=== PATIENT | female | born 1955 | race Caucasian/White ===

== ENCOUNTER 2021-08-15 14:39 | Emergency (ER) | payer OTHER ==
[~2021-08-15] VITALS: Ht 172.7 cm; Wt 181.4 kg
[2021-08-15 15:17] LABS: Basophils # (auto) 0 10 ^3/uL (0-0.2); Eosinophils # (auto) 0.3 10 ^3/uL (0-0.8); Monocytes # (auto) 0.5 10 ^3/uL (0-1.3)
[2021-08-15 15:18] LABS: Basophils % (auto) 0.4 % (0.0-2.0); Eosinophils % (auto) 3.8 % (0.0-7.0); Hematocrit 26.9 % (36.0-46.0); Lymphocytes # (auto) 0.8 10 ^3/uL (0.4-5.4); Lymphocytes % (auto) 9.6 % (10.0-50.0); Mean Corpuscular Hemoglobin 33.9 pg (28.0-32.0); Mean Corpuscular Hgb Conc. 33.5 g/dL (32.0-36.0); Mean Corpuscular Volume 101.3 fL (80.0-100.0); Monocytes % (auto) 6.7 % (0.0-12.0); Neutrophils # (auto) 6.3 10 ^3/uL (1.6-8.6); Neutrophils % (auto) 79.5 % (37.0-80.0); Red Blood Cells 2.66 10^6/uL (4.0-5.20); Red Cell Distribution Width 15.9 % (11.8-14.3); White Blood Cell 7.9 10^3/uL (4.4-10.8)
[2021-08-15] MEDS ORDERED: FUROSEMIDE 40 MG/4 ML VIAL IV ONE (15:30)
[2021-08-15 15:35] LABS: Albumin 3.4 g/dL (3.4-5.0); Calcium 8.8 mg/dL (8.5-10.1); Potassium 3.8 mmol/L (3.5-5.1)
[2021-08-15 15:38] LABS: Bilirubin, Total 0.4 mg/dL (0.2-1.0); Total Protein 6.1 g/dL (6.4-8.2)
[2021-08-15] MEDS ORDERED: FUROSEMIDE 20 MG TAB PO ONE (15:45)
[2021-08-15 15:53] LABS: Urine Bacteria MANY /hpf (None Seen); Urine Blood 2+ /uL (Negative); Urine Mucus FEW (None Seen); Urine Specific Gravity 1.013 (1.001-1.035); Urine WBC 299 /hpf (0 - 5); Urine WBC Clumps PRESENT /hpf (None Seen)
[2021-08-15] MEDS ORDERED: NITROFURANTOIN 100 mg CAP PO ONE (17:15)
[2021-08-15] MEDS ORDERED: NITR-87 PO (17:16)
[2021-08-15 17:28] VITALS: BP 121/70
== END 2021-08-15 17:37 | disposition home or self-care (01) ==
LOC: ER 14:39
DX: N39.0 Urinary tract infection, site not specified (principal); J81.1 Chronic pulmonary edema
CPT/HCPCS: 36415; 71045; 80053; 81001; 83735; 83880; 84484; 85025; 93005

== ENCOUNTER 2021-12-14 16:46 | Inpatient (IN) | payer OTHER ==
[~2021-12-14] VITALS: Ht 172.7 cm; Wt 180.2 kg
[~2021-12-14 16:46] MED LIST: NITR-87 PO
[2021-12-14 20:06] LABS: Urine Bacteria MANY /hpf (None Seen); Urine Blood 1+ /uL (Negative); Urine WBC 241 /hpf (0 - 5); Urine WBC Clumps PRESENT /hpf (None Seen)
[2021-12-14 20:44] LABS: Lymphocytes # (auto) 0.5 10 ^3/uL (0.4-5.4)
[2021-12-14 20:47] LABS: Basophils # (auto) 0 10 ^3/uL (0-0.2); Basophils % (auto) 0.7 % (0.0-2.0); Eosinophils # (auto) 0.2 10 ^3/uL (0-0.8); Eosinophils % (auto) 3.1 % (0.0-7.0); Hematocrit 30.6 % (36.0-46.0); Hemoglobin 9.3 g/dL (12.2-16.2); Lymphocytes % (auto) 10.3 % (10.0-50.0); Mean Corpuscular Hemoglobin 31.4 pg (28.0-32.0); Mean Corpuscular Hgb Conc. 30.4 g/dL (32.0-36.0); Mean Corpuscular Volume 103.4 fL (80.0-100.0); Monocytes # (auto) 0.4 10 ^3/uL (0-1.3); Monocytes % (auto) 8.6 % (0.0-12.0); Neutrophils % (auto) 77.3 % (37.0-80.0); Nucleated Red Blood Cells % 0.1 %; Red Blood Cells 2.96 10^6/uL (4.0-5.20); White Blood Cell 5.2 10^3/uL (4.4-10.8)
[2021-12-14 20:52] LABS: Red Cell Distribution Width 20.5 % (11.8-14.3)
[2021-12-14 21:07] LABS: Albumin 3.4 g/dL (3.4-5.0); Calcium 8.5 mg/dL (8.5-10.1); Potassium 3.3 mmol/L (3.5-5.1)
[2021-12-14 21:09] LABS: BUN/Creatinine Ratio 5.7
[2021-12-14 21:11] LABS: Bilirubin, Total 0.8 mg/dL (0.2-1.0); Total Protein 6.5 g/dL (6.4-8.2)
[2021-12-15] MEDS ORDERED: DOCUSATE SOD 100 MG CAP PO PRN (10:00)
[2021-12-15] MEDS ORDERED: ONDANSETRON HCL 4 MG/2 ML VIAL IV PRN (10:00)
[2021-12-15] MEDS ORDERED: HYDROcodone-ACET 5/325MG TAB PO PRN ×2 (10:00→11:00)
[2021-12-15] MEDS: ENOXAPARIN SOD 30 MG/0.3 ML SYRINGE SC SCH (10:00)
[2021-12-15] MEDS ORDERED: MEROPENEM 1GM IVPB 100 ML IV SCH (11:00)
[2021-12-15 11:01] LABS: INR 1.16 (0.9-1.15); Partial Thromboplastin Time 31.5 sec (24.6-33.4)
[2021-12-15 11:11] LABS: Basophils # (auto) 0 10 ^3/uL (0-0.2); Basophils % (auto) 0.7 % (0.0-2.0); Eosinophils # (auto) 0.2 10 ^3/uL (0-0.8); Eosinophils % (auto) 2.4 % (0.0-7.0); Hematocrit 33.7 % (36.0-46.0); Hemoglobin 9.7 g/dL (12.2-16.2); Lymphocytes # (auto) 0.6 10 ^3/uL (0.4-5.4); Lymphocytes % (auto) 9.7 % (10.0-50.0); Mean Corpuscular Hemoglobin 31.6 pg (28.0-32.0); Mean Corpuscular Hgb Conc. 28.9 g/dL (32.0-36.0); Monocytes # (auto) 0.5 10 ^3/uL (0-1.3); Monocytes % (auto) 8.3 % (0.0-12.0); Neutrophils # (auto) 5.2 10 ^3/uL (1.6-8.6); Neutrophils % (auto) 78.9 % (37.0-80.0); Nucleated Red Blood Cells % 0.3 %; Red Blood Cells 3.09 10^6/uL (4.0-5.20); White Blood Cell 6.5 10^3/uL (4.4-10.8)
[2021-12-15 11:15] LABS: Red Cell Distribution Width 21.5 % (11.8-14.3)
[2021-12-15 11:49] LABS: BUN/Creatinine Ratio 5.5; Calcium 9.1 mg/dL (8.5-10.1); Potassium 3.7 mmol/L (3.5-5.1)
[2021-12-15] MEDS: MIDODRINE HCL 10 MG TAB PO SCH ×2 (13:15→18:22)
[2021-12-15] MEDS ORDERED: ZINC13CR EX (15:36)
[2021-12-15] MEDS ORDERED: DIPH50TA9 PO (15:36)
[2021-12-15] MEDS ORDERED: LIDO5DIS21 TOP (15:36)
[2021-12-15] MEDS ORDERED: MID10T GT (15:36)
[2021-12-15] MEDS ORDERED: HYDR-4902 PO (15:36)
[2021-12-15] MEDS ORDERED: MUPI2CRE17 EX (15:36)
[2021-12-15] MEDS ORDERED: ONDA-155 PO (15:36)
[2021-12-15] MEDS ORDERED: [UNRECOGNIZED DRUG - CODE] IV (15:36)
[2021-12-15] MEDS ORDERED: GUAI200T2 PO (15:36)
[2021-12-15] MEDS ORDERED: METH500T22 PO (15:36)
[2021-12-15] MEDS ORDERED: ACET5SOL5 PO (15:36)
[2021-12-15] MEDS ORDERED: APIX2.5T PO (15:36)
[2021-12-15] MEDS ORDERED: AMIO200T33 PO (15:36)
[2021-12-15] MEDS ORDERED: ALBUAER3 IN (15:36)
[2021-12-15] MEDS ORDERED: NYS5LQ MT (15:36)
[2021-12-15] MEDS ORDERED: MELA5TAB10 PO (15:36)
[2021-12-15] MEDS ORDERED: ATOR20TA50 PO (15:38)
[2021-12-15] MEDS ORDERED: SIME80CH6 PO (15:38)
[2021-12-15] MEDS ORDERED: PANT1INJ3 IV (15:38)
[2021-12-15 17:00] VITALS: BP 93/53
[2021-12-15] MEDS: MEROPENEM 1GM IVPB 100 ML IV SCH (18:23)
[2021-12-15] MEDS: guaiFENesin 200 MG/10 ML UD PO PRN (18:30)
[2021-12-15] MEDS: ACETAMINOPHEN 500 MG TAB PO PRN (18:31)
[2021-12-15 22:14] VITALS: BP 102/50
[2021-12-15] MEDS: ATORVASTATIN 20 MG TAB PO SCH (23:00)
[2021-12-15] MEDS: APIXABAN 2.5 MG TAB PO SCH (23:00)
[2021-12-16 05:00] VITALS: BP 90/61
[2021-12-16] MEDS: MIDODRINE HCL 10 MG TAB PO SCH ×3 (05:41→17:54)
[2021-12-16] MEDS: ALBUMIN 25% 100 ML IV PRN ×2 (05:42→07:00)
[2021-12-16] MEDS ORDERED: SODIUM CHL 0.9% 1000 ML BAG XX ONE (07:00)
[2021-12-16 09:00] VITALS: BP 92/61
[2021-12-16 09:29] LABS: Basophils # (auto) 0 10 ^3/uL (0-0.2); Basophils % (auto) 0.4 % (0.0-2.0); Eosinophils # (auto) 0.2 10 ^3/uL (0-0.8); Eosinophils % (auto) 3.8 % (0.0-7.0); Hematocrit 31.2 % (36.0-46.0); Lymphocytes # (auto) 0.6 10 ^3/uL (0.4-5.4); Lymphocytes % (auto) 9.4 % (10.0-50.0); Mean Corpuscular Hemoglobin 31.6 pg (28.0-32.0); Mean Corpuscular Hgb Conc. 28.7 g/dL (32.0-36.0); Mean Corpuscular Volume 110.1 fL (80.0-100.0); Monocytes # (auto) 0.5 10 ^3/uL (0-1.3); Monocytes % (auto) 7.9 % (0.0-12.0); Neutrophils # (auto) 4.7 10 ^3/uL (1.6-8.6); Neutrophils % (auto) 78.5 % (37.0-80.0); Nucleated Red Blood Cells % 0.2 %; Red Blood Cells 2.84 10^6/uL (4.0-5.20)
[2021-12-16 09:30] LABS: Red Cell Distribution Width 21.1 % (11.8-14.3)
[2021-12-16] MEDS: MEROPENEM 1GM IVPB 100 ML IV SCH (10:00)
[2021-12-16 10:05] LABS: Albumin 3.6 g/dL (3.4-5.0); Calcium 9.1 mg/dL (8.5-10.1); Potassium 3.4 mmol/L (3.5-5.1)
[2021-12-16 10:13] LABS: BUN/Creatinine Ratio 5.8; Total Protein 6.4 g/dL (6.4-8.2)
[2021-12-16] MEDS: APIXABAN 2.5 MG TAB PO SCH ×2 (10:30→21:30)
[2021-12-16] MEDS: ALLOPURINOL 300 MG TAB PO SCH (10:30)
[2021-12-16] MEDS: AMIODARONE HCL 200 MG TAB PO SCH (10:30)
[2021-12-16] MEDS: ENOXAPARIN SOD 30 MG/0.3 ML SYRINGE SC SCH (10:30)
[2021-12-16] MEDS: PANTOPRAZOLE 40 MG TAB PO SCH (10:30)
[2021-12-16] MEDS ORDERED: NYSTATIN-TRIAMCINOLONE TOPICAL CRE 15GM TOP PRN (12:15)
[2021-12-16 13:00] VITALS: BP 93/58
[2021-12-16] MEDS ORDERED: POTASSIUM CHL 20 Meq TABLET PO ONE (14:00)
[2021-12-16 17:00] VITALS: BP 90/64
[2021-12-16] MEDS: EPOETIN ALFA-EPBX 10,000 UNIT/1ML VIAL SC ONE ×2 (21:00→21:30)
[2021-12-16] MEDS: ATORVASTATIN 20 MG TAB PO SCH (21:31)
[2021-12-16 22:00] VITALS: BP 94/54
[2021-12-17] MEDS: ACETAMINOPHEN 500 MG TAB PO PRN (02:24)
[2021-12-17] MEDS: MIDODRINE HCL 10 MG TAB PO SCH ×3 (04:23→17:54)
[2021-12-17 05:00] VITALS: BP 86/59
[2021-12-17 08:25] VITALS: BP 81/55
[2021-12-17] MEDS ORDERED: EPOETIN ALFA-EPBX 10,000 UNIT/1ML VIAL SC ONE (09:00)
[2021-12-17] MEDS: MEROPENEM 500MG IVPB 50 ML IV SCH (10:00)
[2021-12-17] MEDS: APIXABAN 2.5 MG TAB PO SCH ×2 (11:56→22:14)
[2021-12-17] MEDS: AMIODARONE HCL 200 MG TAB PO SCH (11:57)
[2021-12-17] MEDS: PANTOPRAZOLE 40 MG TAB PO SCH (11:59)
[2021-12-17] MEDS: ALLOPURINOL 300 MG TAB PO SCH (11:59)
[2021-12-17] MEDS: ENOXAPARIN SOD 30 MG/0.3 ML SYRINGE SC SCH (11:59)
[2021-12-17 12:25] VITALS: BP 93/57
[2021-12-17 16:20] VITALS: BP 84/61
[2021-12-17 22:00] VITALS: BP 95/53
[2021-12-17] MEDS: ATORVASTATIN 20 MG TAB PO SCH (22:14)
[2021-12-18 05:00] VITALS: BP 84/50
[2021-12-18] MEDS: MIDODRINE HCL 10 MG TAB PO SCH ×3 (05:26→17:31)
[2021-12-18] MEDS ORDERED: SODIUM CHL 0.9% 1000 ML BAG XX ONE (07:00)
[2021-12-18 09:00] VITALS: BP 85/63
[2021-12-18] MEDS: MEROPENEM 500MG IVPB 50 ML IV SCH (09:59)
[2021-12-18] MEDS: AMIODARONE HCL 200 MG TAB PO SCH (09:59)
[2021-12-18] MEDS: APIXABAN 2.5 MG TAB PO SCH ×2 (09:59→21:57)
[2021-12-18] MEDS: ENOXAPARIN SOD 30 MG/0.3 ML SYRINGE SC SCH (10:00)
[2021-12-18] MEDS: PANTOPRAZOLE 40 MG TAB PO SCH (10:00)
[2021-12-18] MEDS: ALLOPURINOL 300 MG TAB PO SCH (10:00)
[2021-12-18 12:22] VITALS: BP 100/68
[2021-12-18 13:00] VITALS: BP 91/62
[2021-12-18 17:00] VITALS: BP 106/62
[2021-12-18] MEDS ORDERED: EPOETIN ALFA-EPBX 10,000 UNIT/1ML VIAL SC ONE (21:00)
[2021-12-18] MEDS: ATORVASTATIN 20 MG TAB PO SCH (21:57)
[2021-12-18 22:00] VITALS: BP 107/66
[2021-12-18] MEDS ORDERED: AMIODARONE HCL 200 MG TAB PO ONE (22:00)
[2021-12-19] MEDS: guaiFENesin 200 MG/10 ML UD PO PRN (02:43)
[2021-12-19 05:00] VITALS: BP 121/52
[2021-12-19] MEDS: MIDODRINE HCL 10 MG TAB PO SCH ×3 (06:10→18:30)
[2021-12-19 09:00] VITALS: BP 99/64
[2021-12-19] MEDS ORDERED: POTASSIUM EFFERVESENT TAB 25 MEQ PO ONE (09:15)
[2021-12-19] MEDS: APIXABAN 2.5 MG TAB PO SCH (10:01)
[2021-12-19] MEDS: PANTOPRAZOLE 40 MG TAB PO SCH (10:01)
[2021-12-19] MEDS: ALLOPURINOL 300 MG TAB PO SCH (10:01)
[2021-12-19] MEDS: AMIODARONE HCL 200 MG TAB PO SCH (10:02)
[2021-12-19] MEDS: MEROPENEM 500MG IVPB 50 ML IV SCH (10:02)
[2021-12-19] MEDS: ENOXAPARIN SOD 30 MG/0.3 ML SYRINGE SC SCH (10:06)
[2021-12-19 11:07] LABS: Albumin 3.2 g/dL (3.4-5.0); BUN/Creatinine Ratio 6.5; Calcium 9.2 mg/dL (8.5-10.1); Phosphorus 4.7 mg/dL (2.5-4.90); Potassium 4.2 mmol/L (3.5-5.1)
[2021-12-19 13:00] VITALS: BP 95/53
[2021-12-19] MEDS ORDERED: ALBUMIN 25% 100 ML IV ONE ×2 (16:00)
[2021-12-19 17:00] VITALS: BP 90/67
[2021-12-19 22:00] VITALS: BP 103/70
[2021-12-19] MEDS ORDERED: MEROPENEM 500MG IVPB 50 ML IV SCH (22:00)
== END 2021-12-19 22:52 | disposition home or self-care (01) | DRG 871 ==
LOC: ER 16:46 → OVERFLOW 12-15 09:51 → WEST WING 12-15 14:00
PROVIDERS: ADMIT Internal Medicine; ATTEND Internal Medicine Nephrology
PROC: 05H933Z Insertion of Infusion Device into Right Brachial Vein, Percutaneous Approach (ICD-10-PCS; 2021-12-15)
PROC: B54MZZA Ultrasonography of Right Upper Extremity Veins, Guidance (ICD-10-PCS; 2021-12-15)
PROC: 5A1D70Z Performance of Urinary Filtration, Intermittent, Less than 6 Hours Per Day (ICD-10-PCS; 2021-12-16)
PROC: 5A1D70Z Performance of Urinary Filtration, Intermittent, Less than 6 Hours Per Day (ICD-10-PCS; principal; 2021-12-19)
DX: A41.9 Sepsis, unspecified organism (principal); N18.6 End stage renal disease; N30.00 Acute cystitis without hematuria; G82.20 Paraplegia, unspecified; I13.2 Hypertensive heart and chronic kidney disease with heart failure and with stage 5 chronic kidney disease, or end stage renal disease; Z16.24 Resistance to multiple antibiotics; Z68.44 Body mass index [BMI] 60.0-69.9, adult; E66.01 Morbid (severe) obesity due to excess calories; D63.1 Anemia in chronic kidney disease; E11.22 Type 2 diabetes mellitus with diabetic chronic kidney disease; M89.9 Disorder of bone, unspecified; I48.91 Unspecified atrial fibrillation; Z20.822 Contact with and (suspected) exposure to COVID-19; I50.9 Heart failure, unspecified; L89.90 Pressure ulcer of unspecified site, unspecified stage; B96.5 Pseudomonas (aeruginosa) (mallei) (pseudomallei) as the cause of diseases classified elsewhere; R34 Anuria and oliguria; B96.1 Klebsiella pneumoniae [K. pneumoniae] as the cause of diseases classified elsewhere; E87.6 Hypokalemia; Z83.3 Family history of diabetes mellitus; Z99.2 Dependence on renal dialysis; Z99.3 Dependence on wheelchair; Z90.49 Acquired absence of other specified parts of digestive tract
CPT/HCPCS: 36415; 36600; 80048; 80053; 80069; 81001; 82306; 82805; 83036; 83970; 84100; 85025; 85049; 85610; 85730; 87040; 87086; 90935; G0378; J1642; J2185; J2405; P9047

== ENCOUNTER → 2022-02-21 | Outpatient (CLI) | payer OTHER ==
[~2022-02-21] MED LIST changes: +ACET5SOL5 PO; +ALBUAER3 IN; +AMIO200T33 PO; +APIX2.5T PO; +ATOR20TA50 PO; +DIPH50TA9 PO; +GUAI200T2 PO; +HYDR-4902 PO; +LIDO5DIS21 TOP; +MELA5TAB10 PO; +METH500T22 PO; +MID10T GT; +MUPI2CRE17 EX; -NITR-87 PO; +NYS5LQ MT; +ONDA-155 PO; +PANT1INJ3 IV; +SIME80CH6 PO; +ZINC13CR EX; +[UNRECOGNIZED DRUG - CODE] IV
[2022-02-21 14:49] LABS: Basophils # (auto) 0 10 ^3/uL (0-0.2); Eosinophils # (auto) 0.2 10 ^3/uL (0-0.8); Lymphocytes # (auto) 0.5 10 ^3/uL (0.4-5.4); Monocytes # (auto) 0.4 10 ^3/uL (0-1.3); Neutrophils # (auto) 4.3 10 ^3/uL (1.6-8.6)
[2022-02-21 14:51] LABS: Basophils % (auto) 0.8 % (0.0-2.0); Eosinophils % (auto) 3.8 % (0.0-7.0); Hematocrit 28.3 % (36.0-46.0); Hemoglobin 8.9 g/dL (12.2-16.2); Lymphocytes % (auto) 8.9 % (10.0-50.0); Mean Corpuscular Hemoglobin 33.3 pg (28.0-32.0); Mean Corpuscular Hgb Conc. 31.4 g/dL (32.0-36.0); Mean Corpuscular Volume 106.1 fL (80.0-100.0); Monocytes % (auto) 7.3 % (0.0-12.0); Neutrophils % (auto) 79.2 % (37.0-80.0); Red Blood Cells 2.67 10^6/uL (4.0-5.20); Red Cell Distribution Width 16.8 % (11.8-14.3); White Blood Cell 5.4 10^3/uL (4.4-10.8)
[2022-02-21 15:05] LABS: INR 1.11 (0.9-1.15)
[2022-02-21 15:54] LABS: Albumin 3.1 g/dL (3.4-5.0); Calcium 9.1 mg/dL (8.5-10.1); Potassium 3.6 mmol/L (3.5-5.1)
[2022-02-21 16:03] LABS: Free T4 (Free Thyroxine) 1.2 ng/dL (0.89-1.76); T3 Total 0.61 ng/mL (0.60-1.81)
[2022-02-21 16:07] LABS: BUN/Creatinine Ratio 6.5; Bilirubin, Total 0.4 mg/dL (0.2-1.0); Total Protein 6.8 g/dL (6.4-8.2)
== END | disposition home or self-care (01) ==
LOC: LAB 14:09
PROVIDERS: ATTEND Nurse Practitioner Acute Care
DX: I13.2 Hypertensive heart and chronic kidney disease with heart failure and with stage 5 chronic kidney disease, or end stage renal disease (principal); I50.9 Heart failure, unspecified; E11.9 Type 2 diabetes mellitus without complications
CPT/HCPCS: 36415; 80053; 80061; 82270; 82306; 83036; 83880; 84439; 84443; 84480; 85025; 85610

== ENCOUNTER → 2022-02-23 | Outpatient (CLI) | payer OTHER | END | disposition home or self-care (01) | LOC: LAB 12:54 | PROVIDERS: ATTEND Internal Medicine | DX: N39.0 Urinary tract infection, site not specified (principal) | CPT/HCPCS: 87070 ==

== ENCOUNTER 2022-02-24 06:04 | Inpatient (IN) | payer OTHER ==
[~2022-02-24] VITALS: Ht 172.7 cm; Wt 157.3 kg
[2022-02-24] MEDS ORDERED: FAMOTIDINE (10MG/ML) 2ML VL IV ONE (07:30)
[2022-02-24] MEDS ORDERED: ONDANSETRON HCL 4 MG/2 ML VIAL IV ONE (07:30)
[2022-02-24] MEDS ORDERED: ALUM & MAG HYDROX-SIMETH LIQ(MAALOX) 30 ML PO ONE (07:30)
[2022-02-24] MEDS ORDERED: LIDOCAINE VISCOUS 2% 15ML UD PO ONE (07:30)
[2022-02-24 08:12] LABS: Hematocrit 26.3 % (36.0-46.0); Hemoglobin 8.3 g/dL (12.2-16.2); Mean Corpuscular Hemoglobin 33.9 pg (28.0-32.0); Mean Corpuscular Hgb Conc. 31.6 g/dL (32.0-36.0); Mean Corpuscular Volume 107.2 fL (80.0-100.0); Red Blood Cells 2.46 10^6/uL (4.0-5.20); White Blood Cell 10.7 10^3/uL (4.4-10.8)
[2022-02-24 08:17] LABS: Basophils % (manual) 0 (0.0-2.0); Blast Cells 0; Eosinophils % (manual) 0 (0-7); Metamyelocytes % 0; Myelocytes % 0; Promyelocytes % 0; Reactive Lymphocytes 0
[2022-02-24 08:50] LABS: Band Neutrophils % (manual) 5; Lymphocytes % (manual) 1 (10.0-50.0); Monocytes % (manual) 3 (0-12)
[2022-02-24 09:14] LABS: Potassium 4.1 mmol/L (3.5-5.1)
[2022-02-24 09:24] LABS: Albumin 2.9 g/dL (3.4-5.0); BUN/Creatinine Ratio 6.5; Bilirubin, Total 0.7 mg/dL (0.2-1.0); Calcium 8.3 mg/dL (8.5-10.1); Magnesium 1.5 mg/dL (1.6-2.6); Total Protein 5.9 g/dL (6.4-8.2)
[2022-02-24] MEDS ORDERED: VANCOMYCIN 1GM/250ML 250 ML IV ONE (09:30)
[2022-02-24] MEDS ORDERED: NITROGLYCERIN 0.4 MG SL TAB SL PRN (11:45)
[2022-02-24] MEDS ORDERED: MORPHINE SULFATE INJ 2 MG/ml SYRG IV PRN (11:45)
[2022-02-24] MEDS ORDERED: ACETAMINOPHEN 325 MG TAB PO PRN (11:45)
[2022-02-24] MEDS ORDERED: DEXTROSE (50%) 50ML SYRG IV PRN (13:15)
[2022-02-24] MEDS ORDERED: PIPERACILLIN-TAZOB 2.25GM 50 ML IV SCH (14:00)
[2022-02-24] MEDS ORDERED: DIGOXIN (250MCG/ML) 2 ML AMPULE IV ONE (14:45)
[2022-02-24] MEDS: MEROPENEM 1GM IVPB 100 ML IV SCH ×3 (15:16→23:53)
[2022-02-24] MEDS: MORPHINE SULFATE INJ 2 MG/ml SYRG IV PRN (15:51)
[2022-02-24] MEDS ORDERED: AMIODARONE HCL 150 MG in D5W 5% 100 ML IV ONE (16:30)
[2022-02-24] MEDS ORDERED: AMIODARONE 450mg/250ml AE 250 ML IV SCH (16:30)
[2022-02-24] MEDS: InsuLIN REG 1unit/0.01ml Soln (100units/ml) SC SCH ×2 (17:00→22:00)
[2022-02-24] MEDS ORDERED: diphenhdrAMINE HCL 25 MG CAP PO SCH (18:00)
[2022-02-24] MEDS: ACCU-CHEK COMFORT CURVE STRIP VI SCH ×2 (18:17→22:00)
[2022-02-24] MEDS: MIDODRINE HCL 10 MG TAB PO SCH (18:19)
[2022-02-24] MEDS: AMIODARONE 450mg/250ml AE 250 ML IV SCH (22:30)
[2022-02-24] MEDS: APIXABAN 2.5 MG TAB PO SCH (23:42)
[2022-02-25] VITALS (22 sets, daily range): BP systolic 86–123; BP diastolic 42–77
[2022-02-25] MEDS ORDERED: NOREPINEPHRINE 8 MG/250ML KIT 250 ML IV SCH (00:15)
[2022-02-25] MEDS: PHENYLEPHRINE IV 250 ML IV SCH ×4 (03:36→13:46)
[2022-02-25 04:42] LABS: Basophils # (auto) 0 10 ^3/uL (0-0.2); Basophils % (auto) 0.3 % (0.0-2.0); Eosinophils # (auto) 0 10 ^3/uL (0-0.8); Lymphocytes # (auto) 0.3 10 ^3/uL (0.4-5.4); White Blood Cell 12.1 10^3/uL (4.4-10.8)
[2022-02-25 04:45] LABS: Hematocrit 25.2 % (36.0-46.0); Hemoglobin 8.1 g/dL (12.2-16.2); Lymphocytes % (auto) 2.7 % (10.0-50.0); Mean Corpuscular Hgb Conc. 32.2 g/dL (32.0-36.0); Mean Corpuscular Volume 105.5 fL (80.0-100.0); Monocytes # (auto) 0.7 10 ^3/uL (0-1.3); Monocytes % (auto) 6.1 % (0.0-12.0); Neutrophils % (auto) 90.9 % (37.0-80.0); Nucleated Red Blood Cells % 0.1 %; Red Blood Cells 2.39 10^6/uL (4.0-5.20); Red Cell Distribution Width 16.5 % (11.8-14.3)
[2022-02-25] MEDS: AMIODARONE 450mg/250ml AE 250 ML IV SCH (04:47)
[2022-02-25 05:09] LABS: BUN/Creatinine Ratio 7.1; Calcium 8.6 mg/dL (8.5-10.1); Potassium 4.3 mmol/L (3.5-5.1)
[2022-02-25] MEDS: MEROPENEM 1GM IVPB 100 ML IV SCH ×2 (06:00→18:00)
[2022-02-25] MEDS: ACCU-CHEK COMFORT CURVE STRIP VI SCH ×4 (06:51→22:18)
[2022-02-25] MEDS: InsuLIN REG 1unit/0.01ml Soln (100units/ml) SC SCH ×4 (06:56→22:00)
[2022-02-25] MEDS ORDERED: SODIUM CHL 0.9% 1000 ML BAG XX ONE (07:00)
[2022-02-25] MEDS: MIDODRINE HCL 10 MG TAB PO SCH ×3 (08:38→18:00)
[2022-02-25] MEDS ORDERED: MIDODRINE HCL 10 MG TAB GT SCH (10:00)
[2022-02-25] MEDS ORDERED: AMIODARONE HCL 200 MG TAB PO SCH (10:00)
[2022-02-25] MEDS: SIMETHICONE 80 MG CHEWABLE TABLET PO SCH (10:46)
[2022-02-25] MEDS: ATORVASTATIN 20 MG TAB PO SCH (10:47)
[2022-02-25] MEDS: APIXABAN 2.5 MG TAB PO SCH ×2 (10:47→22:17)
[2022-02-25] MEDS: DIGOXIN 0.125 MG TAB PO SCH (10:47)
[2022-02-25] MEDS: HYDROcodone-ACET 5/325MG TAB PO PRN (10:57)
[2022-02-25] MEDS ORDERED: ALBUMIN 25% 100 ML IV ONE ×2 (12:15→12:45)
[2022-02-25] MEDS ORDERED: ALBUMIN 25% 100 ML IV PRN (12:30)
[2022-02-25] MEDS ORDERED: EPOETIN ALFA-EPBX 10,000 UNIT/1ML VIAL SC ONE (21:00)
[2022-02-25] MEDS: NYSTATIN TOPICAL POWDER 15GM TOP SCH (22:18)
[2022-02-26] VITALS (91 sets, daily range): BP systolic 72–114; BP diastolic 36–72
[2022-02-26] MEDS: AMIODARONE 450mg/250ml AE 250 ML IV SCH ×2 (00:04→11:07)
[2022-02-26] MEDS: PHENYLEPHRINE IV 250 ML IV SCH ×2 (02:43→19:21)
[2022-02-26] MEDS: ONDANSETRON HCL 4 MG/2 ML VIAL IV PRN ×2 (05:38→19:55)
[2022-02-26 06:17] LABS: Basophils # (auto) 0 10 ^3/uL (0-0.2); Basophils % (auto) 0.3 % (0.0-2.0); Eosinophils # (auto) 0 10 ^3/uL (0-0.8); Eosinophils % (auto) 0.4 % (0.0-7.0); Hemoglobin 7.6 g/dL (12.2-16.2); Lymphocytes # (auto) 0.4 10 ^3/uL (0.4-5.4); Lymphocytes % (auto) 6.9 % (10.0-50.0); Mean Corpuscular Hemoglobin 33.4 pg (28.0-32.0); Mean Corpuscular Hgb Conc. 31.7 g/dL (32.0-36.0); Mean Corpuscular Volume 105.6 fL (80.0-100.0); Monocytes # (auto) 0.8 10 ^3/uL (0-1.3); Monocytes % (auto) 12.6 % (0.0-12.0); Neutrophils # (auto) 5.1 10 ^3/uL (1.6-8.6); Neutrophils % (auto) 79.8 % (37.0-80.0); Red Blood Cells 2.27 10^6/uL (4.0-5.20); Red Cell Distribution Width 16.7 % (11.8-14.3); White Blood Cell 6.4 10^3/uL (4.4-10.8)
[2022-02-26 06:33] LABS: Albumin 2.6 g/dL (3.4-5.0); BUN/Creatinine Ratio 6.9; Calcium 8.1 mg/dL (8.5-10.1)
[2022-02-26 06:35] LABS: Bilirubin, Total 0.9 mg/dL (0.2-1.0); Total Protein 5.6 g/dL (6.4-8.2)
[2022-02-26] MEDS: MIDODRINE HCL 10 MG TAB PO SCH ×3 (06:44→18:00)
[2022-02-26] MEDS: MEROPENEM 1GM IVPB 100 ML IV SCH ×2 (06:45→18:00)
[2022-02-26] MEDS: InsuLIN REG 1unit/0.01ml Soln (100units/ml) SC SCH (06:48)
[2022-02-26] MEDS: ACCU-CHEK COMFORT CURVE STRIP VI SCH (06:49)
[2022-02-26] MEDS ORDERED: VANCOMYCIN PER PHARMACY 0 MG IV SCH (08:00)
[2022-02-26] MEDS: ATORVASTATIN 20 MG TAB PO SCH (10:00)
[2022-02-26] MEDS: NYSTATIN TOPICAL POWDER 15GM TOP SCH ×2 (10:00→21:30)
[2022-02-26] MEDS: SIMETHICONE 80 MG CHEWABLE TABLET PO SCH (10:00)
[2022-02-26] MEDS: DIGOXIN 0.125 MG TAB PO SCH (10:00)
[2022-02-26] MEDS: APIXABAN 2.5 MG TAB PO SCH ×2 (10:00→21:30)
[2022-02-26] MEDS: PANTOPRAZOLE 40 MG/10 ML VIAL INJ IV SCH (10:00)
[2022-02-26] MEDS ORDERED: VANCOMYCIN 1GM/250ML 250 ML IV ONE (13:00)
[2022-02-26] MEDS ORDERED: SIMETHICONE 80 MG CHEWABLE TABLET PO ONE (14:15)
[2022-02-26] MEDS: HYDROcodone-ACET 5/325MG TAB PO PRN (23:25)
[2022-02-27] VITALS (80 sets, daily range): BP systolic 55–105; BP diastolic 33–67
[2022-02-27] MEDS: PHENYLEPHRINE IV 250 ML IV SCH ×3 (03:59→22:52)
[2022-02-27] MEDS: AMIODARONE 450mg/250ml AE 250 ML IV SCH (04:00)
[2022-02-27] MEDS: ONDANSETRON HCL 4 MG/2 ML VIAL IV PRN (04:31)
[2022-02-27] MEDS ORDERED: METOCLOPRAMIDE HCL 5MG/ml INJ 2ml VIAL IV PRN (05:30)
[2022-02-27] MEDS: MIDODRINE HCL 10 MG TAB PO SCH ×3 (06:40→18:24)
[2022-02-27] MEDS: MEROPENEM 1GM IVPB 100 ML IV SCH ×2 (06:41→18:24)
[2022-02-27 06:56] LABS: Eosinophils # (auto) 0.2 10 ^3/uL (0-0.8); Hematocrit 25.6 % (36.0-46.0); Hemoglobin 8.1 g/dL (12.2-16.2); Lymphocytes # (auto) 0.5 10 ^3/uL (0.4-5.4); Mean Corpuscular Hemoglobin 32.8 pg (28.0-32.0); Red Blood Cells 2.48 10^6/uL (4.0-5.20)
[2022-02-27 06:58] LABS: Basophils # (auto) 0.1 10 ^3/uL (0-0.2); Eosinophils % (auto) 1.8 % (0.0-7.0); Lymphocytes % (auto) 4.1 % (10.0-50.0); Mean Corpuscular Hgb Conc. 31.8 g/dL (32.0-36.0); Mean Corpuscular Volume 103.2 fL (80.0-100.0); Monocytes # (auto) 1.3 10 ^3/uL (0-1.3); Monocytes % (auto) 10.1 % (0.0-12.0); Neutrophils # (auto) 10.9 10 ^3/uL (1.6-8.6); Nucleated Red Blood Cells % 0.2 %; Red Cell Distribution Width 16.4 % (11.8-14.3); White Blood Cell 13.1 10^3/uL (4.4-10.8)
[2022-02-27 07:25] LABS: Albumin 2.6 g/dL (3.4-5.0); Calcium 8.3 mg/dL (8.5-10.1); Potassium 4.2 mmol/L (3.5-5.1)
[2022-02-27 07:28] LABS: Bilirubin, Total 0.8 mg/dL (0.2-1.0); Total Protein 5.3 g/dL (6.4-8.2)
[2022-02-27] MEDS: MUPIROCIN 2% OINT 15gm or 22gm FOR MRSA NARES EACHNOSTRI SCH ×2 (10:00→22:52)
[2022-02-27] MEDS: NYSTATIN TOPICAL POWDER 15GM TOP SCH ×2 (10:00→22:53)
[2022-02-27] MEDS: SIMETHICONE 80 MG CHEWABLE TABLET PO SCH (10:00)
[2022-02-27] MEDS: ATORVASTATIN 20 MG TAB PO SCH (10:16)
[2022-02-27] MEDS: DIGOXIN 0.125 MG TAB PO SCH (10:16)
[2022-02-27] MEDS: PANTOPRAZOLE 40 MG/10 ML VIAL INJ IV SCH (10:16)
[2022-02-27] MEDS: APIXABAN 2.5 MG TAB PO SCH ×2 (10:16→22:53)
[2022-02-27] MEDS: AMIODARONE HCL 200 MG TAB PO SCH ×2 (10:16→22:53)
[2022-02-27] MEDS: PROMETHAZINE HCL 25 MG/ML 1ML IV PRN (10:47)
[2022-02-27] MEDS ORDERED: VANCOMYCIN 1GM/250ML 250 ML IV ONE (15:00)
[2022-02-27] MEDS ORDERED: DOCUSATE SOD 100 MG CAP PO PRN (20:00)
[2022-02-27] MEDS: guaiFENesin-DM 100/10mg/5ml SYR PO PRN (22:54)
[2022-02-28] VITALS (90 sets, daily range): BP systolic 66–109; BP diastolic 26–66
[2022-02-28] MEDS: HYDROcodone-ACET 5/325MG TAB PO PRN ×4 (01:21→23:01)
[2022-02-28] MEDS: PROMETHAZINE HCL 25 MG/ML 1ML IV PRN ×2 (01:50→16:24)
[2022-02-28] MEDS: MIDODRINE HCL 10 MG TAB PO SCH ×3 (06:24→17:55)
[2022-02-28] MEDS: MEROPENEM 1GM IVPB 100 ML IV SCH ×2 (06:24→17:54)
[2022-02-28] MEDS: PHENYLEPHRINE IV 250 ML IV SCH ×4 (06:25→20:22)
[2022-02-28] MEDS: guaiFENesin-DM 100/10mg/5ml SYR PO PRN (06:33)
[2022-02-28 06:55] LABS: Eosinophils # (auto) 0.2 10 ^3/uL (0-0.8); Neutrophils % (auto) 85.4 % (37.0-80.0); Red Blood Cells 2.44 10^6/uL (4.0-5.20)
[2022-02-28 06:57] LABS: Basophils # (auto) 0 10 ^3/uL (0-0.2); Basophils % (auto) 0.2 % (0.0-2.0); Eosinophils % (auto) 1.2 % (0.0-7.0); Hematocrit 25.1 % (36.0-46.0); Lymphocytes # (auto) 0.7 10 ^3/uL (0.4-5.4); Lymphocytes % (auto) 4.1 % (10.0-50.0); Mean Corpuscular Hemoglobin 32.8 pg (28.0-32.0); Mean Corpuscular Hgb Conc. 31.8 g/dL (32.0-36.0); Monocytes # (auto) 1.6 10 ^3/uL (0-1.3); Monocytes % (auto) 9.1 % (0.0-12.0); Red Cell Distribution Width 16.5 % (11.8-14.3); White Blood Cell 17.6 10^3/uL (4.4-10.8)
[2022-02-28] MEDS ORDERED: SODIUM CHL 0.9% 1000 ML BAG XX ONE (07:00)
[2022-02-28 07:05] LABS: Albumin 2.5 g/dL (3.4-5.0); Calcium 8.4 mg/dL (8.5-10.1); Potassium 4.6 mmol/L (3.5-5.1)
[2022-02-28 07:10] LABS: BUN/Creatinine Ratio 8.8; Bilirubin, Total 0.8 mg/dL (0.2-1.0); Total Protein 5.2 g/dL (6.4-8.2)
[2022-02-28] MEDS: PANTOPRAZOLE 40 MG/10 ML VIAL INJ IV SCH (09:32)
[2022-02-28] MEDS: DIGOXIN 0.125 MG TAB PO SCH (09:33)
[2022-02-28] MEDS: ATORVASTATIN 20 MG TAB PO SCH (09:33)
[2022-02-28] MEDS: SIMETHICONE 80 MG CHEWABLE TABLET PO SCH (09:34)
[2022-02-28] MEDS: MUPIROCIN 2% OINT 15gm or 22gm FOR MRSA NARES EACHNOSTRI SCH ×2 (09:34→22:30)
[2022-02-28] MEDS: APIXABAN 2.5 MG TAB PO SCH ×2 (09:34→22:30)
[2022-02-28] MEDS: AMIODARONE HCL 200 MG TAB PO SCH ×2 (09:34→22:30)
[2022-02-28] MEDS: NYSTATIN TOPICAL POWDER 15GM TOP SCH ×2 (09:34→22:30)
[2022-02-28] MEDS ORDERED: DAPTOMYCIN IV SCH (10:00)
[2022-02-28] MEDS ORDERED: SODIUM CHL 0.9% IV SCH (10:00)
[2022-02-28] MEDS ORDERED: MAGNESIUM SULFATE 1GM/100ML 100 ML IV ONE (10:15)
[2022-02-28] MEDS ORDERED: VANCOMYCIN 1GM/250ML 250 ML IV ONE (16:00)
[2022-02-28] MEDS: DAPTOmycin 500 MG in SODIUM CHL 0.9% 50 ML IV SCH (17:00)
[2022-02-28] MEDS ORDERED: EPOETIN ALFA-EPBX 10,000 UNIT/1ML VIAL SC ONE (21:00)
[2022-03-01] VITALS (84 sets, daily range): BP systolic 67–105; BP diastolic 30–70
[2022-03-01] MEDS: HYDROcodone-ACET 5/325MG TAB PO PRN ×3 (04:50→20:37)
[2022-03-01] MEDS: MEROPENEM 1GM IVPB 100 ML IV SCH (04:51)
[2022-03-01] MEDS: MIDODRINE HCL 10 MG TAB PO SCH ×3 (04:51→18:37)
[2022-03-01 05:24] LABS: Eosinophils # (auto) 0.5 10 ^3/uL (0-0.8)
[2022-03-01 05:26] LABS: Basophils # (auto) 0.1 10 ^3/uL (0-0.2); Basophils % (auto) 0.6 % (0.0-2.0); Eosinophils % (auto) 3.4 % (0.0-7.0); Hematocrit 25.1 % (36.0-46.0); Hemoglobin 8.1 g/dL (12.2-16.2); Lymphocytes # (auto) 0.7 10 ^3/uL (0.4-5.4); Lymphocytes % (auto) 5.2 % (10.0-50.0); Mean Corpuscular Hemoglobin 33.3 pg (28.0-32.0); Mean Corpuscular Hgb Conc. 32.1 g/dL (32.0-36.0); Mean Corpuscular Volume 103.7 fL (80.0-100.0); Monocytes % (auto) 7.3 % (0.0-12.0); Neutrophils % (auto) 83.5 % (37.0-80.0); Red Blood Cells 2.42 10^6/uL (4.0-5.20); Red Cell Distribution Width 16.3 % (11.8-14.3); White Blood Cell 14.4 10^3/uL (4.4-10.8)
[2022-03-01 05:42] LABS: Potassium 4.6 mmol/L (3.5-5.1)
[2022-03-01 05:47] LABS: BUN/Creatinine Ratio 8.2; Calcium 8.2 mg/dL (8.5-10.1); Total Protein 5.2 g/dL (6.4-8.2)
[2022-03-01 05:51] LABS: Albumin 2.3 g/dL (3.4-5.0); Bilirubin, Total 0.8 mg/dL (0.2-1.0)
[2022-03-01 06:56] LABS: INR 1.27 (0.9-1.15); Partial Thromboplastin Time 58.1 sec (24.6-33.4)
[2022-03-01] MEDS: PANTOPRAZOLE 40 MG/10 ML VIAL INJ IV SCH (09:07)
[2022-03-01] MEDS: SIMETHICONE 80 MG CHEWABLE TABLET PO SCH (09:07)
[2022-03-01] MEDS: AMIODARONE HCL 200 MG TAB PO SCH (09:07)
[2022-03-01] MEDS: APIXABAN 2.5 MG TAB PO SCH ×2 (09:07→21:33)
[2022-03-01] MEDS: ATORVASTATIN 20 MG TAB PO SCH (09:07)
[2022-03-01] MEDS: NYSTATIN TOPICAL POWDER 15GM TOP SCH ×2 (09:09→21:33)
[2022-03-01] MEDS: MUPIROCIN 2% OINT 15gm or 22gm FOR MRSA NARES EACHNOSTRI SCH ×2 (09:10→21:33)
[2022-03-01] MEDS: PHENYLEPHRINE INJ 80 MG in SODIUM CHL 0.9% 242 ML IV SCH ×2 (10:29→11:47)
[2022-03-01] MEDS: Juven Fruit Punch Powder PACKET 28.8gm PO SCH (14:06)
[2022-03-02] VITALS (87 sets, daily range): BP systolic 76–113; BP diastolic 23–73
[2022-03-02 03:53] LABS: Basophils # (auto) 0.1 10 ^3/uL (0-0.2); Lymphocytes # (auto) 0.7 10 ^3/uL (0.4-5.4); Monocytes # (auto) 1.2 10 ^3/uL (0-1.3)
[2022-03-02 03:56] LABS: Basophils % (auto) 0.5 % (0.0-2.0); Eosinophils # (auto) 0.6 10 ^3/uL (0-0.8); Eosinophils % (auto) 4.5 % (0.0-7.0); Hematocrit 23.7 % (36.0-46.0); Hemoglobin 7.8 g/dL (12.2-16.2); Lymphocytes % (auto) 5.8 % (10.0-50.0); Mean Corpuscular Hemoglobin 33.9 pg (28.0-32.0); Mean Corpuscular Hgb Conc. 32.8 g/dL (32.0-36.0); Mean Corpuscular Volume 103.2 fL (80.0-100.0); Monocytes % (auto) 9.7 % (0.0-12.0); Neutrophils # (auto) 10.1 10 ^3/uL (1.6-8.6); Neutrophils % (auto) 79.5 % (37.0-80.0); Red Blood Cells 2.29 10^6/uL (4.0-5.20); Red Cell Distribution Width 16.5 % (11.8-14.3); White Blood Cell 12.7 10^3/uL (4.4-10.8)
[2022-03-02 04:10] LABS: Albumin 2.3 g/dL (3.4-5.0); BUN/Creatinine Ratio 8.5; Calcium 8.3 mg/dL (8.5-10.1); Potassium 4.8 mmol/L (3.5-5.1)
[2022-03-02 04:13] LABS: Bilirubin, Total 0.7 mg/dL (0.2-1.0); Total Protein 5.1 g/dL (6.4-8.2)
[2022-03-02 04:20] LABS: Folate (Folic Acid) 13.75 ng/mL (5.38-24)
[2022-03-02] MEDS: MIDODRINE HCL 10 MG TAB PO SCH ×3 (05:46→18:00)
[2022-03-02] MEDS: Juven Fruit Punch Powder PACKET 28.8gm PO SCH (09:43)
[2022-03-02] MEDS: SIMETHICONE 80 MG CHEWABLE TABLET PO SCH (09:43)
[2022-03-02] MEDS: PANTOPRAZOLE 40 MG/10 ML VIAL INJ IV SCH (09:43)
[2022-03-02] MEDS: ATORVASTATIN 20 MG TAB PO SCH (09:43)
[2022-03-02] MEDS: APIXABAN 2.5 MG TAB PO SCH ×2 (09:43→21:45)
[2022-03-02] MEDS: MUPIROCIN 2% OINT 15gm or 22gm FOR MRSA NARES EACHNOSTRI SCH ×2 (09:43→21:39)
[2022-03-02] MEDS: NYSTATIN TOPICAL POWDER 15GM TOP SCH ×2 (09:43→21:39)
[2022-03-02] MEDS ORDERED: DIGOXIN 0.125 MG TAB PO SCH (10:00)
[2022-03-02] MEDS: PHENYLEPHRINE INJ 80 MG in SODIUM CHL 0.9% 242 ML IV SCH ×3 (12:48)
[2022-03-02] MEDS ORDERED: LORazepam 2MG/ML-1ML VIAL IV PRN (13:00)
[2022-03-02] MEDS: ALBUMIN 25% 100 ML IV SCH ×2 (13:20→13:41)
[2022-03-02] MEDS: DAPTOmycin 500 MG in SODIUM CHL 0.9% 50 ML IV SCH (17:00)
[2022-03-02] MEDS: HYDROcodone-ACET 5/325MG TAB PO PRN (20:23)
[2022-03-02] MEDS: MORPHINE SULFATE INJ 2 MG/ml SYRG IV PRN (21:57)
[2022-03-03] VITALS (60 sets, daily range): BP systolic 69–111; BP diastolic 36–83
[2022-03-03] MEDS: HYDROcodone-ACET 5/325MG TAB PO PRN ×3 (00:34→21:49)
[2022-03-03] MEDS ORDERED: PHENYLEPHRINE IV 250 ML IV ONE (01:10)
[2022-03-03] MEDS ORDERED: PHENYLEPHRINE HCL 10 MG/ML VL ONE (01:10)
[2022-03-03] MEDS: PHENYLEPHRINE INJ 80 MG in SODIUM CHL 0.9% 242 ML IV SCH (01:35)
[2022-03-03] MEDS: ALBUMIN 25% 100 ML IV SCH ×3 (03:28→17:52)
[2022-03-03 04:51] LABS: Basophils # (auto) 0 10 ^3/uL (0-0.2); Basophils % (auto) 0.5 % (0.0-2.0); Eosinophils # (auto) 0.5 10 ^3/uL (0-0.8); Eosinophils % (auto) 4.5 % (0.0-7.0); Hemoglobin 7.6 g/dL (12.2-16.2); Lymphocytes # (auto) 0.7 10 ^3/uL (0.4-5.4); Mean Corpuscular Hgb Conc. 32.9 g/dL (32.0-36.0); Mean Corpuscular Volume 103.3 fL (80.0-100.0); Monocytes % (auto) 9.2 % (0.0-12.0); Neutrophils # (auto) 8.7 10 ^3/uL (1.6-8.6); Neutrophils % (auto) 79.8 % (37.0-80.0); Nucleated Red Blood Cells % 0.2 %; Red Blood Cells 2.23 10^6/uL (4.0-5.20); Red Cell Distribution Width 16.8 % (11.8-14.3); White Blood Cell 10.8 10^3/uL (4.4-10.8)
[2022-03-03 05:12] LABS: Calcium 8.5 mg/dL (8.5-10.1); Potassium 5.1 mmol/L (3.5-5.1)
[2022-03-03] MEDS: MIDODRINE HCL 10 MG TAB PO SCH ×3 (05:48→16:52)
[2022-03-03] MEDS: PANTOPRAZOLE 40 MG/10 ML VIAL INJ IV SCH (09:06)
[2022-03-03] MEDS: Juven Fruit Punch Powder PACKET 28.8gm PO SCH (09:06)
[2022-03-03] MEDS: APIXABAN 2.5 MG TAB PO SCH ×2 (09:06→22:00)
[2022-03-03] MEDS: MUPIROCIN 2% OINT 15gm or 22gm FOR MRSA NARES EACHNOSTRI SCH ×2 (09:06→22:29)
[2022-03-03] MEDS: ATORVASTATIN 20 MG TAB PO SCH (09:09)
[2022-03-03] MEDS: NYSTATIN TOPICAL POWDER 15GM TOP SCH ×2 (10:00→22:29)
[2022-03-03] MEDS: SIMETHICONE 80 MG CHEWABLE TABLET PO SCH (10:00)
[2022-03-03] MEDS ORDERED: ONDANSETRON HCL 4 MG/2 ML VIAL ONE (10:34)
[2022-03-03] MEDS: LORazepam 2MG/ML-1ML VIAL IV PRN (17:51)
[2022-03-04] MEDS: LORazepam 2MG/ML-1ML VIAL IV PRN ×3 (00:50→10:04)
[2022-03-04 05:00] VITALS: BP 91/68
[2022-03-04] MEDS: MIDODRINE HCL 10 MG TAB PO SCH (06:00)
[2022-03-04 08:00] VITALS: BP 125/94
[2022-03-04 08:53] VITALS: BP 125/94
[2022-03-04] MEDS ORDERED: KETOROLAC TROMETH 30 MG/ML 1ML VIAL IV ONE ×2 (09:45→16:00)
[2022-03-04] MEDS ORDERED: HYDROmorphone HCL 2 MG/ML VL/or syr IV ONE ×2 (09:45→16:00)
[2022-03-04] MEDS: NYSTATIN TOPICAL POWDER 15GM TOP SCH (10:04)
[2022-03-04] MEDS: PANTOPRAZOLE 40 MG/10 ML VIAL INJ IV SCH (10:04)
[2022-03-04] MEDS: Juven Fruit Punch Powder PACKET 28.8gm PO SCH (10:04)
[2022-03-04 13:00] VITALS: BP 83/39
[2022-03-04] MEDS: DAPTOmycin 500 MG in SODIUM CHL 0.9% 50 ML IV SCH (16:50)
[2022-03-04 16:55] VITALS: BP 87/46
[2022-03-04 17:30] VITALS: BP 87/46
== END 2022-03-04 18:21 | disposition hospice, home (50) | DRG 871 ==
LOC: EDUNIT# 06:04 → ER 06:04 → EDBD 06:04 → TELE 11:36 → DOU IN ICU 02-25 17:15 → ICU CENTRL 02-27 07:32 → ICU WEST 03-01 10:08 → TELE-WESTW 03-04 01:27
PROVIDERS: ADMIT Registered Nurse; ATTEND Internal Medicine
PROC: 5A1D70Z Performance of Urinary Filtration, Intermittent, Less than 6 Hours Per Day (ICD-10-PCS; principal; 2022-02-25)
DX: A41.02 Sepsis due to Methicillin resistant Staphylococcus aureus (principal); I50.33 Acute on chronic diastolic (congestive) heart failure; N18.6 End stage renal disease; R65.21 Severe sepsis with septic shock; D68.59 Other primary thrombophilia; Z68.44 Body mass index [BMI] 60.0-69.9, adult; N39.0 Urinary tract infection, site not specified; I13.2 Hypertensive heart and chronic kidney disease with heart failure and with stage 5 chronic kidney disease, or end stage renal disease; J96.10 Chronic respiratory failure, unspecified whether with hypoxia or hypercapnia; E11.51 Type 2 diabetes mellitus with diabetic peripheral angiopathy without gangrene; Z66 Do not resuscitate; L98.429 Non-pressure chronic ulcer of back with unspecified severity; Z51.5 Encounter for palliative care; L89.150 Pressure ulcer of sacral region, unstageable; J44.9 Chronic obstructive pulmonary disease, unspecified; I48.0 Paroxysmal atrial fibrillation; D53.9 Nutritional anemia, unspecified; E66.01 Morbid (severe) obesity due to excess calories; E78.5 Hyperlipidemia, unspecified; F41.9 Anxiety disorder, unspecified; Z20.822 Contact with and (suspected) exposure to COVID-19; S31.000A Unspecified open wound of lower back and pelvis without penetration into retroperitoneum, initial encounter; E88.09 Other disorders of plasma-protein metabolism, not elsewhere classified; X58.XXXA Exposure to other specified factors, initial encounter; D63.8 Anemia in other chronic diseases classified elsewhere; E11.22 Type 2 diabetes mellitus with diabetic chronic kidney disease; F44.4 Conversion disorder with motor symptom or deficit; Z99.2 Dependence on renal dialysis; Z74.01 Bed confinement status; Z83.3 Family history of diabetes mellitus; Z87.440 Personal history of urinary (tract) infections; Z93.3 Colostomy status; Z90.49 Acquired absence of other specified parts of digestive tract; Y93.89 Activity, other specified; Y92.89 Other specified places as the place of occurrence of the external cause; Y99.8 Other external cause status
CPT/HCPCS: 36415; 71045; 80048; 80053; 80061; 80162; 80202; 82270; 82306; 82550; 82607; 82746; 82962; 83036; 83605; 83735; 83880; 84100; 84439; 84443; 84480; 84484; 85007; 85025; 85027; 85610; 85730; 86850; 86900; 86901; 87040; 87070; 87077; 87081; 87186; 87205; 87426; 90935; 93005; 93306; 93886; 93925; 93970; 96365; 96367; 96375; C9113; G0378; J1642; J1885; J2185; J2405; J3490; J7060; P9047